=== PATIENT | male | born 1995 | race African-American/Black ===

== ENCOUNTER 2020-10-20 19:14 | Emergency (ER) | payer SELFPAY ==
[~2020-10-20] VITALS: Ht 188 cm; Wt 93.0 kg
[2020-10-20 19:33] VITALS: BP 136/79
[2020-10-20] MEDS ORDERED: BACITRACIN ZINC OINT UDPKT TOP ONE (22:30)
[2020-10-20] MEDS ORDERED: LIDOCAINE HCL/PF 1% 10 MG/ML 5ML VIAL IJ ONE (22:30)
== END 2020-10-20 23:20 | disposition home or self-care (01) ==
LOC: ER 19:14
DX: S61.411A Laceration without foreign body of right hand, initial encounter (principal); W25.XXXA Contact with sharp glass, initial encounter; Y93.89 Activity, other specified; Y92.89 Other specified places as the place of occurrence of the external cause; Y99.8 Other external cause status
CPT/HCPCS: 12001; 73130; 99283; J3490; Z7610